=== PATIENT | female | born 1990 | race African-American/Black ===

== ENCOUNTER 2021-01-05 14:03 | Emergency (ER) | payer BC ==
[~2021-01-05] VITALS: Ht 180.3 cm; Wt 111.1 kg
[2021-01-05] MEDS ORDERED: DEXAMETHASONE 4 MG TAB PO STA (14:18)
[2021-01-05] MEDS ORDERED: CARBAMAZEPINE100 M2 PO (14:30)
[2021-01-05] MEDS ORDERED: ONDANSETRON ODT4 MG PO (15:03)
== END 2021-01-05 15:09 | disposition home or self-care (01) ==
LOC: ER 14:18
DX: R20.2 Paresthesia of skin (principal); M26.602 Left temporomandibular joint disorder, unspecified; J45.909 Unspecified asthma, uncomplicated
CPT/HCPCS: 93005; 99283; J8540